=== PATIENT | male | born 1935 | race Caucasian/White ===

== ENCOUNTER 2019-02-16 10:48 | Emergency (ER) | payer MEDICARE, BC ==
[2019-02-16 11:05] VITALS: BP 115/72
--- NOTE | 2019-02-16 11:17 | UC ---
Eye Complaint HPI - HPI Summary HPI Summary: 83 year old male with no PMH presents with b/l eye drainage since friday. This AM woke with eyes "swollen shut" b/l. + gritty feeling, no pain, no FB sensation, was not working with wood or other objects. no eye difficulties in past, no vision changes. no pain, no swelling. no recent colds/ illnesses , has h/o chronic sinus congestion, no changes recently. - History of Current Complaint Chief Complaint: UCEye Stated Complaint: EYE ISSUE Time Seen by Provider: 02/16/19 11:06 Hx Obtained From: Patient Onset/Duration: Sudden Onset, Lasting Days - since friday Severity Initially: Mild Severity Currently: None Pain Intensity: 0 Pain Scale Used: 0-10 Numeric Location of Injury: Conjunctiva - Allergies/Home Medications Allergies/Adverse Reactions: Allergies Allergy/AdvReac Type Severity Reaction Status Date / Time No Known Allergies Allergy Verified 02/16/19 10:56 Home Medications: Home Medications Bicalutamide [Casodex] 50 mg PO ONCE 02/16/19 [History Confirmed 02/16/19] Cholecalciferol (Vitamin D3) [Vitamin D-3] 2,000 unit PO DAILY 02/16/19 [ History Confirmed 02/16/19] Leuprolide 11.25 MG KIT [Lupron Depot*] 30 mg IM ONCE 02/16/19 [History Confirmed 02/16/19] Melatonin [Melatonin Maximum Strengt] 10 mg PO DAILY 02/16/19 [History Confirmed 02/16/19] Rosuvastatin Calcium [Crestor] 40 mg PO DAILY 02/16/19 [History Confirmed ] PMH/Surg Hx/FS Hx/Imm Hx Previously Healthy: Yes - no eye probs in past - Surgical History Surgical History: Yes Surgery Procedure, Year, and Place: 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 [place] [place] [place]AC[place]. 1 [place] [facility] [place] Social History Alcohol Use: None Alcohol Amount: 1 GLASS OF WINE Substance Use Type: None Smoking Status (MU): Never Smoked Tobacco - Immunization History Most Recent Influenza Vaccination: 2013 Most Recent Tetanus Shot: UNSURE OF DATE Most Recent Pneumonia Vaccination: STATES HAS HAD Review of Systems All Other Systems Reviewed And Are Negative: Yes Constitutional: Negative: Fever, Chills, Fatigue Eyes: Positive: Drainage, Eye Redness. Negative: Photophobia Neurological: Positive: Negative. Negative: Headache, Weakness, Paresthesia Psychological: Positive: Negative Is Patient Immunocompromised?: No Physical Exam Triage Information Reviewed: Yes Appearance: Well-Appearing, No Pain Distress, Well-Nourished Vital Signs: Initial Vital Signs Temp 97.8 F 02/16/19 11:01 Pulse 66 02/16/19 11:01 Resp 18 02/16/19 11:01 BP 115/72 02/16/19 11:01 Pulse Ox 99 02/16/19 11:01 Vital Signs Reviewed: Yes Eyes: Positive: Conjunctiva Inflamed, Discharge - musous dischage noted b/l EMOI, PERRL + injectioned conjunctiva ENT: Positive: Hearing grossly normal - hearing aides in place, Pharyngeal erythema, Uvula midline, Other - cerumen impaction b/l. Negative: Nasal congestion, Tonsillar swelling, Tonsillar exudate, Sinus tenderness Neck: Positive: Supple, Nontender Psychological Exam: Normal Skin Exam: Normal Eye Complaint Course/Dx - Course Course Of Treatment: Cerumen impaction b/l- irrigated in office B/L conjunctivitis, acute, bactrial: - Eye drops every 4 hours bilaterally x 5-7 days - Over the counter natural tears/ saline drops as needed for symptoms - If vision changes, pain, increased redness, go to ER or eye doctor for further treatment - Differential Dx/Diagnosis Provider Diagnosis: Conjunctivitis Discharge ED - Sign-Out/Discharge Documenting (check all that apply): Patient Departure All imaging exams completed and their final reports reviewed: No Studies - Discharge Plan Condition: Good Disposition: HOME Prescriptions: Ofloxacin 0.3% (Eye Drop) [Ocuflox OPTH 0.3% (Eye Drop)] 1 - 2 drop BOTH EYES Q4H #1 btl Patient Education Materials: Cerumen Impaction (ED), Conjunctivitis (ED) Referrals: Linda Livingston MD [Primary Care Provider] - Additional Instructions: - Eye drops every 4 hours bilaterally x 5-7 days - Over the counter natural tears/ saline drops as needed for symptoms - If vision changes, pain, increased redness, go to ER or eye doctor for further treatment - Billing Disposition and Condition Condition: GOOD Disposition: Home
== END 2019-02-16 12:11 | disposition home or self-care (01) ==
LOC: UCEAST 10:48
DX: H10.33 Unspecified acute conjunctivitis, bilateral (principal); H61.23 Impacted cerumen, bilateral; Z95.1 Presence of aortocoronary bypass graft; Z96.651 Presence of right artificial knee joint
CPT/HCPCS: 99213; G0463

== ENCOUNTER 2019-10-16 10:53 | Inpatient (IN) ==
[2019-10-16 11:31] LABS: ABS Eosinophils 0.2 10^3/ul (0-0.6); ABS Lymphocytes 1.3 10^3/ul (1.0-4.8); ABS Monocytes 0.5 10^3/ul (0-0.8); Eosinophil % 3.4 %; Hematocrit 42 % (42-52); Hemoglobin 14.6 g/dL (14.0-18.0); Lymphocyte % 19.8 %; Mean Corpuscular HGB Conc 34 g/dL (31-36); Mean Corpuscular Hemoglobin 32 pg (27-31); Mean Corpuscular Volume 92 fL (80-94); Platelet Count 151 10^3/uL (150-450); Red Blood Count 4.59 10^6 /uL (4.18-5.48); Red Cell Distribution Width 14 % (10-15); White Blood Count 6.6 10^3/uL (3.5-10.8)
[2019-10-16 11:36] LABS: INR 1.22 (0.82-1.09)
[2019-10-16 11:48] LABS: ALT 17 U/L (7-52); AST 21 U/L (13-39); Albumin 3.9 g/dL (3.2-5.2); Albumin/Globulin Ratio 1.4 (1-3); Alkaline Phosphatase 145 U/L (34-104); Anion Gap 6 mmol/L (2-11); BUN/Creatinine Ratio 25.4 (8-20); Blood Urea Nitrogen 29 mg/dL (6-24); CO2 Carbon Dioxide 28 mmol/L (22-32); Calcium 9.1 mg/dL (8.6-10.3); Chloride 104 mmol/L (101-111); EGFR African American 74.1 (>60); EGFR Non-African American 61.2 (>60); Globulin 2.7 g/dL (2-4); Glucose 160 mg/dL (70-100); Potassium 4.1 mmol/L (3.5-5.0); Sodium 138 mmol/L (135-145); Total Protein 6.6 g/dL (6.4-8.9)
[2019-10-16 11:52] LABS: Troponin I 0.04 ng/mL (<0.03)
[2019-10-16] MEDS ORDERED: Atropine 1MG/ML INJ 1 ML VIAL IV PUSH PRN ×2 (11:56→12:21)
[2019-10-16] MEDS ORDERED: NS 0.9% 1000 ml BAG 1,000 ML IV ONE ×2 (11:57→14:42)
[2019-10-16] MEDS ORDERED: Atropine 0.1 MG/ML 10 ml SYR (1 mg) ONE ×4 (11:59→12:23)
[2019-10-16] MEDS: Atropine 0.1 MG/ML 10 ml SYR (1 mg) IV PUSH PRN ×4 (12:02→12:24)
[2019-10-16] MEDS ORDERED: EPINEPHrine SYR 0.1MG/ML 10 ml SYRINGE ONE (12:06)
[2019-10-16] MEDS ORDERED: Rocuronium 50 mg VIAL 10 mg/ml 5 ml VIAL (50 mg) ONE (12:06)
[2019-10-16] MEDS ORDERED: Succinylcholine 200 mg VIAL 20 mg/ml 10 ml VIAL (200 mg) ONE (12:07)
[2019-10-16] MEDS ORDERED: Morphine 4 MG/ML VIAL (1 ml) IV ONE (12:22)
[2019-10-16 12:23] LABS: Activated Partial Thrombo Time 24.8 seconds (26.0-38.0)
[2019-10-16] MEDS ORDERED: Heparin - STEMI 5,000 UNITS/ML 1 ml VIAL IV ONE (12:29)
[2019-10-16] MEDS ORDERED: diPHENhydraMINE 25 mg TAB PO PRN (13:03)
[2019-10-16] MEDS ORDERED: Lidocaine 1% VIAL 10 MG/ML VIAL ONE (13:15)
[2019-10-16] MEDS ORDERED: Heparin 2 UNITS/ML 1000 mls 0 ML IV ONE (13:15)
[2019-10-16] MEDS ORDERED: nitroGLYCERIN DRIP 25,000 MCG/250 ML BTL ONE (13:15)
[2019-10-16] MEDS ORDERED: VERAPAMIL 2.5 MG/ML 2 ML VIAL ** 5 mg/2 ml ONE (13:15)
[2019-10-16] MEDS ORDERED: Heparin 1,000 UNIT/ML CATH LAB 1,000 10 ml (10,000 UNITS) IV ONE (13:15)
[2019-10-16] MEDS ORDERED: Iodixanol 320 (CONTRAST) 100 ML SDV ONE (13:21)
[2019-10-16] MEDS ORDERED: Midazolam 5 mg/5 ml VIAL 1 mg/ml 5 ml VIAL (5 mg) ONE (13:42)
[2019-10-16] MEDS ORDERED: fentaNYL 100 mcg/2 ml 50 MCG/ML VIAL ONE (13:42)
[2019-10-16] MEDS ORDERED: Heparin 2 UNITS/ML 1000 mls 1,000 ML IV ONE (13:46)
[2019-10-16] MEDS ORDERED: Bivalirudin(*) 250 MG VIAL ONE (14:12)
[2019-10-16 15:30] LABS: ABS Lymphocytes 0.8 10^3/ul (1.0-4.8); ABS Monocytes 0.4 10^3/ul (0-0.8); Eosinophil % 0.3 %; Hematocrit 35 % (42-52); Hemoglobin 11.7 g/dL (14.0-18.0); Lymphocyte % 8.9 %; Mean Corpuscular HGB Conc 33 g/dL (31-36); Mean Corpuscular Hemoglobin 31 pg (27-31); Mean Corpuscular Volume 94 fL (80-94); Mean Platelet Volume 8.7 fL (7.4-10.4); Platelet Count 131 10^3/uL (150-450); Red Blood Count 3.77 10^6 /uL (4.18-5.48); Red Cell Distribution Width 13 % (10-15); White Blood Count 8.7 10^3/uL (3.5-10.8)
[2019-10-16 15:48] LABS: Blood Urea Nitrogen 23 mg/dL (6-24); CO2 Carbon Dioxide 20 mmol/L (22-32); Calcium 6.6 mg/dL (8.6-10.3); EGFR African American 108.3 (>60); EGFR Non-African American 89.5 (>60); Glucose 99 mg/dL (70-100); Potassium 3.5 mmol/L (3.5-5.0); Sodium 139 mmol/L (135-145)
[2019-10-16 15:50] LABS: Anion Gap 4 mmol/L (2-11); Chloride 115 mmol/L (101-111)
[2019-10-16 15:51] LABS: Troponin I 0.17 ng/mL (<0.03)
[2019-10-16] MEDS: Rosuvastatin 20 mg TAB (NF) PO SCH (15:57)
[2019-10-16 16:57] LABS: INR 1.65 (0.82-1.09)
[2019-10-16 17:14] LABS: Creatine Kinase 87 U/L (10-223)
[2019-10-16 17:20] LABS: CKMB ng/mL 5.7 ng/mL (0.6-6.3)
[2019-10-16 19:18] LABS: Urine Appearance Clear; Urine Bilirubin Negative (Negative); Urine Blood 3+ (Negative); Urine Color Straw; Urine Glucose Negative (Negative); Urine Ketones Negative (Negative); Urine Nitrite Negative (Negative); Urine Protein Negative (Negative); Urine Specific Gravity 1.024 (1.010-1.030); Urine Urobilinogen Negative (Negative)
[2019-10-16 19:48] LABS: Urine Bacteria Absent (Absent); Urine Red Blood Cell 3+(>10/hpf) (Absent); Urine White Blood Cell Absent (Absent)
[2019-10-16 21:17] LABS: Creatine Kinase 249 U/L (10-223)
[2019-10-16 21:22] LABS: Troponin I 2.78 ng/mL (<0.03)
[2019-10-17 03:36] LABS: ABS Basophils 0.1 10^3/ul (0-0.2); ABS Eosinophils 0.1 10^3/ul (0-0.6); ABS Lymphocytes 0.8 10^3/ul (1.0-4.8); ABS Monocytes 0.8 10^3/ul (0-0.8); Eosinophil % 0.6 %; Hematocrit 40 % (42-52); Hemoglobin 13.6 g/dL (14.0-18.0); Lymphocyte % 7.8 %; Mean Corpuscular HGB Conc 34 g/dL (31-36); Mean Corpuscular Hemoglobin 31 pg (27-31); Mean Corpuscular Volume 92 fL (80-94); Mean Platelet Volume 8.7 fL (7.4-10.4); Nucleated Red Blood Cells % 0.1; Platelet Count 150 10^3/uL (150-450); Red Blood Count 4.36 10^6 /uL (4.18-5.48); Red Cell Distribution Width 13 % (10-15); White Blood Count 10.7 10^3/uL (3.5-10.8)
[2019-10-17 03:46] LABS: Creatine Kinase 295 U/L (10-223)
[2019-10-17 03:51] LABS: Troponin I 3.77 ng/mL (<0.03)
[2019-10-17 03:52] LABS: CKMB ng/mL 26.3 ng/mL (0.6-6.3)
[2019-10-17 04:45] LABS: ALT 15 U/L (7-52); AST 36 U/L (13-39); Albumin 3.4 g/dL (3.2-5.2); Albumin/Globulin Ratio 1.5 (1-3); Alkaline Phosphatase 135 U/L (34-104); Anion Gap 7 mmol/L (2-11); BUN/Creatinine Ratio 25.3 (8-20); Blood Urea Nitrogen 23 mg/dL (6-24); CO2 Carbon Dioxide 23 mmol/L (22-32); Calcium 8.2 mg/dL (8.6-10.3); Chloride 108 mmol/L (101-111); Cholesterol 110 mg/dL; EGFR Non-African American 79.4 (>60); Globulin 2.3 g/dL (2-4); Glucose 105 mg/dL (70-100); HDL Cholesterol 45.2 mg/dL; LDL Cholesterol 52 mg/dL; Potassium 3.8 mmol/L (3.5-5.0); Sodium 138 mmol/L (135-145); Total Protein 5.7 g/dL (6.4-8.9); Triglycerides 66 mg/dL
[2019-10-17] MEDS: Rosuvastatin 20 mg TAB (NF) PO SCH (08:19)
[2019-10-17 10:29] LABS: Creatine Kinase 320 U/L (10-223)
[2019-10-17 10:35] LABS: CKMB ng/mL 20.9 ng/mL (0.6-6.3)
[2019-10-17 10:40] LABS: Troponin I 3.55 ng/mL (<0.03)
[2019-10-18] MEDS: Rosuvastatin 20 mg TAB (NF) PO SCH (09:09)
[2019-10-18 09:16] LABS: Anion Gap 7 mmol/L (2-11); BUN/Creatinine Ratio 19.8 (8-20); Blood Urea Nitrogen 20 mg/dL (6-24); CO2 Carbon Dioxide 25 mmol/L (22-32); Calcium 8.8 mg/dL (8.6-10.3); Chloride 105 mmol/L (101-111); EGFR African American 85.2 (>60); EGFR Non-African American 70.4 (>60); Glucose 132 mg/dL (70-100); Potassium 3.9 mmol/L (3.5-5.0); Sodium 137 mmol/L (135-145)
[2019-10-18 09:27] LABS: Troponin I 1.55 ng/mL (<0.03)
[2019-10-18 12:23] VITALS: BP 137/64
== END 2019-10-18 12:40 | disposition home or self-care (01) | DRG 247 ==
LOC: ED 10:53 → CHICATH 13:28 → ICU 13:38 → MEDTELE 10-17 10:43
PROVIDERS: ADMIT Internal Medicine Cardiovascular Disease; ATTEND Specialist

== ENCOUNTER 2022-11-21 16:17 | Inpatient (IN) ==
[2022-11-21] MEDS ORDERED: Lactated Ringers 1000 ml BAG 500 ML IV ONE (17:45)
[2022-11-21 19:24] LABS: Hematocrit 38.2 % (38-53); Hemoglobin 13.2 g/dL (13.2-16.3); Mean Corpuscular Hemoglobin 30.9 pg (27-33); Mean Corpuscular Hgb Conc 34.5 g/dL (31-36); Mean Corpuscular Volume 89.4 fL (80-97); Mean Platelet Volume 7.5 fL (7.5-11.2); Platelet Count 170 10^3/uL (150-450); Red Blood Count 4.27 10^6/uL (4.06-5.63); Red Cell Distribution Width 14.4 % (12-17); White Blood Count 5.6 10^3/uL (3.6-10.2)
[2022-11-21 19:42] LABS: Albumin 3.2 g/dL (3.2-5.2); Albumin/Globulin Ratio 1.1 (1-3); Calcium 8.3 mg/dL (8.6-10.3); Creatinine, Serum 0.89 mg/dL (0.67-1.17); Globulin 2.9 g/dL (2-4); Potassium 3.4 mmol/L (3.5-5.0); Total Bilirubin 0.9 mg/dL (0.2-1.0); Total Protein 6.1 g/dL (6.4-8.9); eGFR CKD-EPI 82.9 (>60)
[2022-11-21 20:19] LABS: TSH Ultra Thyroid Stim Horm 2.54 mcIU/mL (0.34-5.60)
[2022-11-21 20:25] LABS: Free T4 1.05 ng/dL (0.61-1.12)
[2022-11-21 20:29] LABS: ABS Basophils 0.1 10^3/uL (0.0-0.1); ABS Eosinophils 0.2 10^3/uL (0.0-0.5); ABS Lymphocytes 1.2 10^3/uL (1.0-4.8); ABS Monocytes 0.7 10^3/uL (0.0-1.1); ABS Neutrophils 3.5 10^3/uL (1.5-7.6); ABS Nucleated RBC 0.01 10^3/ul; Eosinophil % 3.8 %; Lymphocyte % 21.8 %; Nucleated Red Blood Cells % 0.1 /100 WBC (0.0-0.4)
[2022-11-21] MEDS ORDERED: Dexamethasone IV 4 MG/ML VIAL 1 ml VIAL IV SLOW PU ONE (20:59)
[2022-11-21 21:27] LABS: High Sensitivity Troponin 1 Hr 133 pg/mL (<20)
[2022-11-21] MEDS ORDERED: Cefepime 1 GM in Dextrose 1 GM/50 ML BAG IV ONE (21:45)
[2022-11-21] MEDS ORDERED: Ciprofloxacin 400mg IVPREMIX 400 MG/200 ML BAG IVPB ONE (21:45)
[2022-11-21] MEDS ORDERED: Enoxaparin 40 MG/0.4 ML SYR SUBCUT SCH (23:00)
[2022-11-21] MEDS ORDERED: Potassium Chlor 20 meq TAB.ER PO ONE (23:13)
[2022-11-22] MEDS: OLAPARIB 150 MG PO SCH ×2 (00:29→09:32)
[2022-11-22] MEDS ORDERED: Iohexol 350 (CONTRAST) 500 ML MDV IV ONE (03:58)
[2022-11-22] MEDS ORDERED: Heparin 5000 UNITS/ML 1 mL VIAL IV SCH (05:00)
[2022-11-22 05:42] LABS: ABS Lymphocytes 0.5 10^3/uL (1.0-4.8); ABS Monocytes 0.2 10^3/uL (0.0-1.1); ABS Neutrophils 3.7 10^3/uL (1.5-7.6); Eosinophil % 0.1 %; Hematocrit 39.8 % (38-53); Hemoglobin 13.5 g/dL (13.2-16.3); Lymphocyte % 12.1 %; Mean Corpuscular Hemoglobin 30.7 pg (27-33); Mean Corpuscular Hgb Conc 33.9 g/dL (31-36); Mean Corpuscular Volume 90.5 fL (80-97); Mean Platelet Volume 7.7 fL (7.5-11.2); Platelet Count 171 10^3/uL (150-450); Red Blood Count 4.39 10^6/uL (4.06-5.63); White Blood Count 4.4 10^3/uL (3.6-10.2)
[2022-11-22 05:56] LABS: Creatinine, Serum 0.79 mg/dL (0.67-1.17)
[2022-11-22 05:57] LABS: Calcium 8.2 mg/dL (8.6-10.3); Creatinine, Serum 0.79 mg/dL (0.67-1.17); Potassium 3.4 mmol/L (3.5-5.0)
[2022-11-22] MEDS: Heparin DRIP 25,000 UNITS BAG 25,000 UNITS/500 ML BAG IV SCH (06:32)
[2022-11-22] MEDS ORDERED: Sulfur Hexaflouride MICROSPHR 25 MG VIAL ONE (08:52)
[2022-11-22] MEDS ORDERED: Aspirin EC 81 mg TAB.EC (enteric coated) PO SCH (09:00)
[2022-11-22] MEDS ORDERED: Pantoprazole VIAL 40 MG VIAL IV ONE (12:58)
[2022-11-22] MEDS ORDERED: Potassium Chlor 20 meq TAB.ER PO ONE (14:36)
[2022-11-22] MEDS ORDERED: Dextrose 50% Syringe 50 ml 25 GM/50 ML SYRINGE IV PUSH PRN (16:29)
[2022-11-22] MEDS ORDERED: Enoxaparin 40 MG/0.4 ML SYR SUBCUT SCH (23:00)
[2022-11-23] MEDS: Heparin DRIP 25,000 UNITS BAG 25,000 UNITS/500 ML BAG IV SCH (05:35)
[2022-11-23 08:49] LABS: ABS Lymphocytes 0.8 10^3/uL (1.0-4.8); ABS Neutrophils 12.9 10^3/uL (1.5-7.6); ABS Nucleated RBC 0.01 10^3/ul; Hematocrit 39.1 % (38-53); Hemoglobin 13.6 g/dL (13.2-16.3); Lymphocyte % 5.3 %; Mean Corpuscular Hemoglobin 30.5 pg (27-33); Mean Corpuscular Hgb Conc 34.8 g/dL (31-36); Mean Corpuscular Volume 87.6 fL (80-97); Mean Platelet Volume 8.1 fL (7.5-11.2); Platelet Count 236 10^3/uL (150-450); Red Blood Count 4.46 10^6/uL (4.06-5.63); Red Cell Distribution Width 14.1 % (12-17); White Blood Count 14.7 10^3/uL (3.6-10.2)
[2022-11-23] MEDS ORDERED: Potassium Chlor 20 meq TAB.ER PO ONE (16:57)
[2022-11-23] MEDS ORDERED: Insulin GLARGINE 100 un/ml 10 ml VIAL SUBCUT SCH (21:00)
[2022-11-24 07:05] LABS: ABS Basophils 0.1 10^3/uL (0.0-0.1); ABS Monocytes 0.8 10^3/uL (0.0-1.1); ABS Neutrophils 9.9 10^3/uL (1.5-7.6); Eosinophil % 0.1 %; Hematocrit 36.5 % (38-53); Hemoglobin 12.4 g/dL (13.2-16.3); Lymphocyte % 8.3 %; Mean Corpuscular Hemoglobin 30.7 pg (27-33); Mean Corpuscular Volume 90.3 fL (80-97); Mean Platelet Volume 7.9 fL (7.5-11.2); Platelet Count 234 10^3/uL (150-450); Red Blood Count 4.04 10^6/uL (4.06-5.63); Red Cell Distribution Width 14.7 % (12-17); White Blood Count 11.8 10^3/uL (3.6-10.2)
[2022-11-24 07:20] LABS: Calcium 7.9 mg/dL (8.6-10.3); Creatinine, Serum 0.76 mg/dL (0.67-1.17); Magnesium 1.9 mg/dL (1.9-2.7); Potassium 3.7 mmol/L (3.5-5.0)
[2022-11-24 14:43] VITALS: BP 142/81
== END 2022-11-24 15:17 | disposition home or self-care (01) | DRG 176 ==
LOC: ED 16:17 → EDHOLD 16:17 → SUATTDRO 22:13 → OBSVTOIN 22:13 → MEDTELE 11-22 12:21
PROVIDERS: ADMIT Internal Medicine; ATTEND Internal Medicine